=== PATIENT | female | born 1980 | race Caucasian/White ===

== ENCOUNTER 2016-07-20 13:58 | Emergency (ER) | payer SELFPAY ==
[2016-07-20 16:47] LABS: BASOPHIL 0.4 % (0-2); HCT 42.9 % (37.0-47.0); HGB 14.7 g/dl (12.5-16.0); LYMPHOCYTE 21.4 % (15-48); MCH 31.3 pg (25.0-31.0); MCHC 34.3 g/dL (32.0-36.0); MCV 91.3 fL (78.0-100.0); MONOCYTE 7.5 % (0-12); MPV 9.5 fL (6.0-9.5); NEUTROPHIL 69.7 % (41-80); PLT 397 K/uL (150-400); RDW 12.9 % (11.5-14.0); WBC 11.5 K/uL (4.0-10.5)
[2016-07-20 17:03] LABS: ALBUMIN 4.6 g/dL (3.5-5.0); BILIRUBIN - TOTAL 0.4 mg/dL (0.1-1.0); CREATININE 0.9 mg/dL (0.5-1.0); GLOBULIN (CALCULATION) 2.5 g/dL (2.2-4.2); POTASSIUM 4.2 mmol/L (3.5-5.1); TOTAL PROTEIN 7.1 g/dL (6.4-8.3)
== END 2016-07-20 18:36 | disposition home or self-care (01) ==
LOC: FER 13:58
PROVIDERS: Emergency Medicine
DX: J20.9 Acute bronchitis, unspecified (principal); F17.210 Nicotine dependence, cigarettes, uncomplicated; Z88.2 Allergy status to sulfonamides
CPT/HCPCS: 36415; 71020; 80053; 85025; 94640; J2930